=== PATIENT | male | born 1960 | race African-American/Black ===

== ENCOUNTER 2018-08-04 17:18 | Emergency (ER) | payer MEDICARE ==
[2018-08-04 18:00] LABS: #Basophils 0.1 thou/uL (0.0-0.2); #Eosinphils 0.5 thou/uL (0.0-0.7); #Lymphocytes 3.2 thou/uL (1.20-3.40); #Monocytes 0.8 thou/uL (0.11-0.59); #Neutrophils 5.8 thou/uL (1.40-6.50); %Basophils 0.9 % (0.0-1.0); %Eosinophils 4.6 % (0.0-10.0); %Monocytes 7.9 % (0.0-10.0); %Neutrophils 55.6 % (42.0-75.0); Hemoglobin 11.2 g/dL (14.0-18.0); Mean Corpuscular HGB CONC 34.2 g/dL (32.0-36.0); Mean Corpuscular Hemoglobin 32.9 pg (27.0-31.0); Mean Corpuscular Volume 96.1 fL (78.0-98.0); Mean Platelet Volume 7.1 fL (7.4-10.4); Platelet Count 339 thou/uL (130-400); RBC Distribution Width 11.4 % (11.5-14.5); Red Blood Cell (RBC) Count 3.42 mill/uL (4.70-6.10); White Blood Cell (WBC) Count 10.4 thou/uL (4.8-10.8)
[2018-08-04 18:33] LABS: ALT (SGPT) 20 U/L (8-55); AST (SGOT) 18 U/L (5-34); Albumin 4.5 g/dL (3.5-5.0); Alkaline Phosphatase 87 U/L (40-150); Anion Gap 16 mmol/L (10-20); BUN (Urea Nitrogen) 32 mg/dL (8.4-25.7); Bilirubin, Total 0.8 mg/dL (0.2-1.2); Calc. Creatinine Clearance 0 mL/min (70-130); Calcium 10.3 mg/dL (7.8-10.44); Chloride 105 mmol/L (98-107); Estimated GFR-MDRD 41; Globulin 3.2 g/dL (2.4-3.5); Glucose 232 mg/dL (70-105); Potassium 4.4 mmol/L (3.5-5.1); Protein, Total 7.7 g/dL (6.0-8.3); Sodium 140 mmol/L (136-145)
[2018-08-04 18:40] LABS: Carbon Dioxide 23 mmol/L (22-29)
--- NOTE | 2018-08-04 19:07 | RAD ---
RIGHT BIG TOE THREE VIEWS: History: Right toe pain. Ulceration. FINDINGS: Mild joint space narrowing and osteophytosis. Soft tissue swelling about the big toe. Prominent arter ial calcification. No acute fracture, dislocation, or soft tissue gas are apparent. IMPRESSION: 1. Mild degenerative changes. Soft tissue swelling. 2. No acute osseous abnormalities are demonstrated. 3. Atherosclerosis. POS: NAYELI
== END 2018-08-04 19:00 | disposition home or self-care (01) ==
LOC: ERS 17:18
DX: B35.1 Tinea unguium (principal); E11.621 Type 2 diabetes mellitus with foot ulcer; L97.529 Non-pressure chronic ulcer of other part of left foot with unspecified severity; L97.519 Non-pressure chronic ulcer of other part of right foot with unspecified severity; E11.40 Type 2 diabetes mellitus with diabetic neuropathy, unspecified; E78.5 Hyperlipidemia, unspecified; I10 Essential (primary) hypertension; F32.9 Major depressive disorder, single episode, unspecified; Z79.84 Long term (current) use of oral hypoglycemic drugs; Z79.899 Other long term (current) drug therapy
CPT/HCPCS: 36415; 80053; 85025

== ENCOUNTER 2018-10-07 11:24 | Inpatient (IN) | payer MEDICARE ==
[2018-10-07] MEDS ORDERED: Morphine 4 MG/ML VIAL ONE (12:35)
[2018-10-07] MEDS ORDERED: Ondansetron PF 4 MG/2 ML Vial ONE (12:36)
[2018-10-07] MEDS ORDERED: HYDROcodone/Acetaminophen 5/325 mg Tablet PO PRN ×2 (14:34)
[2018-10-07] MEDS ORDERED: Acetaminophen 325 MG TAB PO PRN (14:34)
[2018-10-07] MEDS ORDERED: Morphine 2 MG/ML SYRINGE SLOW IVP PRN (14:38)
[2018-10-07] MEDS ORDERED: Sodium Chloride 0.45% 1,000 ML IV SCH (14:45)
[2018-10-07] MEDS ORDERED: Sodium Chloride 0.9% 500 ML IV SCH (14:45)
[2018-10-07] MEDS ORDERED: HumaLOG 300 UNITS/3 ML VIAL SC PRN (14:51)
[2018-10-07] MEDS ORDERED: Dextrose 50% Abboject 50 ML SYRINGE SLOW IVP PRN (14:51)
[2018-10-07] MEDS ORDERED: Dextrose 5% in Water 1,000 ML IV PRN (14:51)
--- NOTE | 2018-10-07 14:53 | HP ---
HISTORY OF PRESENT ILLNESS: Wilmer Owusu is a 58-year-old black male from [place]. The patient has had an ongoing problem of his right great toe resulting in severe infection, purulent drainage, and pain. He is on metformin for diabetes and lisinopril for hypertension. 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 X-rays reveal osteomyelitis. He denies any injury. He has had an ongoing nail bed infection. He is seen in the emergency room and laboratories essentially normal. He did have a white count of 9, hemoglobin of 10.8, BUN 47, creatinine 1.82, glucose 239. ALLERGIES: NONE. SOCIAL HISTORY: Tobacco, none. Alcohol, none. MEDICATIONS: None recorded. He reports metformin and lisinopril. PAST SURGICAL HISTORY: Noncontributory. PAST MEDICAL HISTORY: Diabetes, noninsulin-dependent, oral hypoglycemics; hypertension. He is followed by Clinic in [place]. PHYSICAL EXAMINATION: HEAD, EARS, EYES, NOSE, AND THROAT: Unremarkable. LUNGS: Clear to auscultation. CARDIAC: Regular rate and rhythm without murmur or gallop. ABDOMEN: Soft, nontender. EXTREMITIES: Palpable femoral, popliteal, pedal pulses. Right great toe purulent drainage through an open wound at the tip when probed communicates to the phalanx. There is swelling, edema, and pain. Other toes are normal. ASSESSMENT AND PLAN: 1. Right great toe diabetic infection with osteomyelitis. Plan is amputation of the distal toe with probable primary closure. I expect hospitalization 1 to 2 days, IV antibiotics, and discharged home on oral antibiotics with a postoperative shoe. Follow up in my office in 1 to 2 weeks for suture removal. 2. Diabetes mellitus. 3. Hypertension. 4. Anemia. Encourage screening colonoscopy outpatient future. Job ID: [id number]
[2018-10-07 15:15] LABS: Hemoglobin A1c 7.6 % (4.0-6.0)
[2018-10-07] MEDS ORDERED: Piperacillin/Tazobactam 3.375 GM VIAL ONE (17:26)
[2018-10-07] MEDS ORDERED: Ropivacaine 0.5% HCl/PF (150 MG/30 ML VIAL) ONE (17:46)
[2018-10-07] MEDS ORDERED: Piperacillin/Tazobactam 3.375 GM in Sodium Chloride 0.9% 100 ML IVPB SCH (18:00)
--- NOTE | 2018-10-07 18:06 | HP ---
CHIEF COMPLAINT: Right toe pain. HISTORY OF PRESENT ILLNESS: This patient is a 58-year-old male, who presented via the emergency department. The patient reports he has been having some pain and inflammation in his right great toe for about 3 months. He has been attempting to follow up with his PCP, but says he has limitations due to transportation issues. The patient has been on a course of Bactrim for about 8 days now, had a couple of more doses left on it. The patient continues to do a lot of walking and fishing on [place]. He has had no associated fevers or chills. He does report that he has pain radiating up into the middle of the foot area. He says he had stepped on a log or stick by the [place] that had scratched the upper part of his foot and he still has a couple of minor scars there from that interaction. PAST MEDICAL HISTORY: Notable for diabetes mellitus, hypertension. PAST SURGICAL HISTORY: Surgery on the left fifth finger over 20 years ago. FAMILY HISTORY: Mother has Alzheimer's. Father with complications and diabetes. SOCIAL HISTORY: The patient is a nonsmoker, only occasionally consumes alcohol. He is , but technically still . He is full code, and his daughters would be his surrogate decision maker. The patient reports that he is retired. ALLERGIES: NONE. MEDICATIONS: 1. Metformin 1000 mg b.i.d. 2. Gabapentin 600 mg b.i.d. 3. Sertraline 100 mg daily. 4. Pravastatin 10 mg at bedtime. 5. Ultram 50 mg q.6 hours p.r.n. PHYSICAL EXAMINATION: VITAL SIGNS: BP 135/84, pulse 63, respirations 16, O2 saturation 100% on room air. GENERAL APPEARANCE: Age-appropriate male, in no distress. He is awake, alert, oriented, pleasant, and cooperative. HEENT: PERRL. No OP lesions. NECK: Supple and symmetric. HEART: Regular rate and rhythm without murmurs, gallops, or rubs. LUNGS: Clear to auscultation bilaterally. ABDOMEN: Soft, nontender, and nondistended. Positive bowel sounds. No masses. No organomegaly. EXTREMITIES: Right foot reveals a foul smelling open sore at the distal aspect of the right great toe. The distal portion of the toe is generally edematous and discolored. The other toes have some mild callus. There are weakly palpable pulses in both PT and DP. SKIN: Warm. PSYCHIATRIC: The patient has normal affect and behavior. NEURO: The patient has normal sensation and appears to be grossly intact with no focal deficits. LABORATORY DATA: White count is 9.8, hemoglobin is 10.8, platelets are 542. Sodium 134, potassium 5.5, chloride 102, anion gap 16, BUN 47, creatinine 1.82, glucose 187. IMAGING STUDIES: Toe x-ray compared to previous study in July says there is an interval development of a comminuted distal tuft fracture of the right great toe. IMPRESSION AND PLAN: 1. Abscess of the right great toe in a diabetic with ulceration. I was seeing the patient in conjunction with Dr. Bowie. He probed the wound and was able to probe down to the bone. We discussed the situation with the patient, and ultimately, the decision was made to do a distal toe amputation. I will keep the patient on vancomycin and Zosyn, which he was started on in the emergency department. Keep him n.p.o. and anticipate that surgery to happen this afternoon. We will likely be able to follow up on cultures and I will be able to discharge him within a couple of days on oral antibiotics and wound care. We both discussed the need to stay in a protective boot postoperatively. 2. Diabetes mellitus. We will check a hemoglobin A1c. Continue with his usual home medications, diabetic diet, and Accu-Cheks with sliding scale insulin. 3. Chronic kidney disease. The patient appears to have chronic kidney disease stage 3. His creatinine is pretty close to where he was in July in fact slightly better. His GFR remains in the 40s, where it was in July. 4. Borderline hyperkalemia. We will give some fluid resuscitation. 5. Hyperlipidemia. Continue with his pravastatin. Job ID: [id number]
[2018-10-07] MEDS ORDERED: Midazolam HCl 2 mg/2 ml Vial ONE ×2 (18:15)
[2018-10-07] MEDS ORDERED: Bacitracin Zinc Ointment 30 gm TUBE ONE (18:21)
[2018-10-07] MEDS ORDERED: Sodium Chloride 0.9% 100 ML ONE (18:37)
[2018-10-07] MEDS ORDERED: traMADol HCl 50 MG TAB PO PRN (18:37)
[2018-10-07] MEDS ORDERED: Promethazine HCl 25 MG/ML VIAL SLOW IVP PRN (18:44)
[2018-10-07] MEDS ORDERED: Promethazine HCl 25 MG/ML VIAL IM PRN (18:44)
[2018-10-07] MEDS ORDERED: Ondansetron HCl/PF 4 MG/2 ML Vial IVP PRN (18:44)
[2018-10-07] MEDS: metFORMIN 500 MG TAB PO SCH (18:55)
[2018-10-07] MEDS ORDERED: Pravastatin Sodium 20 MG TAB PO SCH (21:00)
[2018-10-07] MEDS: Famotidine 20 MG TAB PO SCH (21:49)
[2018-10-07] MEDS: Gabapentin 300 MG CAP PO SCH (21:50)
[2018-10-07] MEDS ORDERED: diphenhydrAMINE 25 MG CAP PO PRN (22:04)
[2018-10-08] MEDS: Ibuprofen 600 MG TAB PO PRN ×2 (01:55→08:18)
[2018-10-08] MEDS: Piperacillin/Tazobactam 3.375 GM in Sodium Chloride 0.9% 100 ML IVPB SCH ×3 (01:56→13:41)
[2018-10-08] MEDS: Vancomycin HCl 1 GM in Premix Bag 1 BAG IVPB SCH ×2 (03:15→14:41)
[2018-10-08 03:44] VITALS: BMI 28.9
[2018-10-08] MEDS: traMADol HCl 50 MG TAB PO PRN ×2 (03:58→10:50)
[2018-10-08] MEDS: Acetaminophen 500 MG TAB PO PRN ×2 (03:59→10:50)
[2018-10-08 05:34] LABS: #Basophils 0.1 thou/uL (0.0-0.2); #Eosinphils 0.4 thou/uL (0.0-0.7); #Lymphocytes 2.7 thou/uL (1.20-3.40); #Monocytes 0.6 thou/uL (0.11-0.59); #Neutrophils 3.1 thou/uL (1.40-6.50); %Lymphocytes 38.7 % (21.0-51.0); %Monocytes 9.4 % (0.0-10.0); %Neutrophils 45.1 % (42.0-75.0); Hemoglobin 10.9 g/dL (14.0-18.0); Mean Corpuscular HGB CONC 33.6 g/dL (32.0-36.0); Mean Corpuscular Hemoglobin 32.3 pg (27.0-31.0); Mean Corpuscular Volume 96.3 fL (78.0-98.0); Mean Platelet Volume 6.8 fL (7.4-10.4); Platelet Count 514 thou/uL (130-400); RBC Distribution Width 11.2 % (11.5-14.5); Red Blood Cell (RBC) Count 3.37 mill/uL (4.70-6.10); White Blood Cell (WBC) Count 6.9 thou/uL (4.8-10.8)
[2018-10-08] MEDS: Morphine 2 MG/ML SYRINGE SLOW IVP PRN ×2 (05:40→09:00)
[2018-10-08 06:00] LABS: Anion Gap 15 mmol/L (10-20); BUN (Urea Nitrogen) 32 mg/dL (8.4-25.7); Calc. Creatinine Clearance 62 mL/min (70-130); Calcium 9.5 mg/dL (7.8-10.44); Carbon Dioxide 20 mmol/L (22-29); Chloride 105 mmol/L (98-107); Estimated GFR-MDRD 51; Glucose 274 mg/dL (70-105); Potassium 5.2 mmol/L (3.5-5.1); Sodium 135 mmol/L (136-145)
[2018-10-08] MEDS: Famotidine 20 MG TAB PO SCH (08:18)
[2018-10-08] MEDS: Gabapentin 300 MG CAP PO SCH (08:18)
[2018-10-08] MEDS: metFORMIN 500 MG TAB PO SCH (08:18)
[2018-10-08] MEDS ORDERED: Enoxaparin Sodium 40 MG/0.4 ML SYRINGE SC SCH (09:00)
--- NOTE | 2018-10-08 11:49 | PRG ---
DATE OF SERVICE: 10/08/2018 SUBJECTIVE: Wilmer Owusu is doing well today. His dressings are intact. He has his postoperative shoe. I recommended that he remove his dressing tomorrow, wash the wound with soap and water, apply antibiotic ointment and Band-Aid. He can take Tylenol, ibuprofen, and Ultram p.r.n. pain. I have written these prescriptions. He can stop the IV antibiotics and start oral antibiotics, Augmentin and Bactrim for 10 days. Follow up in my office in 2 weeks, keep the wound clean. Job ID: [id number]
[2018-10-08 15:48] VITALS: BP 126/75; TEMP 98.1
--- NOTE | 2018-10-08 16:57 | DIS ---
DATE OF ADMISSION: 10/07/2018 DATE OF DISCHARGE: 10/08/2018 FINAL DIAGNOSES: 1. Right great toe diabetic infection with osteomyelitis, status post amputation of the distal toe with primary closure. 2. Diabetes mellitus. 3. Hypertension. 4. Anemia. 5. Renal insufficiency, suspected acute on chronic insufficiency. 6. Hyperkalemia, mild. LITERARY AGENT: Dr. Ricardo Bowie, General Surgery. PROCEDURE: 10/07/2018, amputation of the distal toe . HOSPITAL COURSE: The patient was a 58-year-old male, who presented via the emergency department with complaints of right toe pain, which was going for approximately 3 months. He tried to follow up with his PCP, but he has some limitations due to transportation issues. The patient was on course of Bactrim for about eight days prior to this hospitalization. He did not have any fevers or chills. He had some radiation of this pain into the middle part of his foot on the right side. He was evaluated in the emergency room and was found to have white count of 9.8, hemoglobin 10.8, platelet count 542, potassium 5.2, chloride 102, anion gap 16, BUN 47, creatinine 1.82. X-ray showed interval development of comminuted distal tuft fracture of the right great toe. The patient was admitted to the hospital, placed on Zosyn and vancomycin. General Surgery was consulted and Dr. Bowie took the patient to the operating room and did great toe amputation. The patient is doing quite well postop, but he has shooting pains in his right foot. His preliminary bacterial culture from the toe specimen showed moderate wbc's, rbc's present, few epithelial cells, many gram-positive cocci in pairs and clusters, many gram-negative rods, moderate gram-positive rods. The culture is still pending. His creatinine is down to 1.67. Hemoglobin A1c came back at 7.6. The patient's right foot is placed in ortho boot. Dr. Bowie saw the patient today and he is okay to discharge him home. Supposed to wash with soap and water daily, put some ointment on it and Band-Aid, and follow up with Dr. Bowie in 2 weeks to remove the stitches. The patient is going to stay on 2000 calories ADA diet. Activities as tolerated. HOME MEDICATIONS: 1. Hydrocodone bitartrate/acetaminophen 5/325 mg one tablet q.4 hours p.r.n. as needed. 2. Gabapentin 600 mg twice a day. 3. Lisinopril/hydrochlorothiazide 20/12.5 mg 1 tablet every morning. 4. Diclofenac 75 mg q.a.m. 5. Pravastatin 20 mg at bedtime. 6. Metformin 1000 mg twice a day. 7. Sertraline (Zoloft) 1 tablet once a day. 8. Augmentin 500 mg twice a day for 10 days. 9. Bactrim DS one tablet twice a day. 10. Tramadol 50 to 100 p.r.n. as needed. FOLLOWUP: He is encouraged to follow up with his primary care physician if it is possible in 1 week and the patient was seen and examined before he is discharged and discharge time is less than 30 minutes. Job ID: [id number]
--- NOTE | 2018-10-10 10:16 | OP ---
DATE OF PROCEDURE: 10/07/2018 PREOPERATIVE DIAGNOSIS: Osteomyelitis, right great toe, diabetic. PROCEDURE PERFORMED: Amputation of right great toe through the proximal phalanx with primary closure. ANESTHESIA: MAC, ankle block. BLOOD LOSS: Negligible. DESCRIPTION OF PROCEDURE: The patient was taken to the operating room, where under ankle block and intravenous sedation, his right lower extremity was prepared with ChloraPrep and draped in routine fashion. Incision was made fishmouth type for amputation of the right great toe through the proximal phalanx. Incision was carried down through skin and subcutaneous tissue. Phalanx resected proximally with a bone cutter and more proximally with a rongeur. Wound irrigated. Connective tissue debrided sharply. Subcutaneous tissue was approximated with 3-0 Monocryl, skin with 4-0 Prolene. Antibiotic ointment and sterile dressings were applied. The patient tolerated the procedure well. Job ID: [id number]
== END 2018-10-08 15:40 | disposition home or self-care (01) | DRG 617 ==
LOC: ERS 11:24 → SURG B 13:20
PROVIDERS: ADMIT Internal Medicine; ATTEND Internal Medicine
PROC: 0Y6P0Z1 Detachment at Right 1st Toe, High, Open Approach (ICD-10-PCS; principal; 2018-10-07)
DX: E11.69 Type 2 diabetes mellitus with other specified complication (principal); M86.171 Other acute osteomyelitis, right ankle and foot; L02.611 Cutaneous abscess of right foot; L97.519 Non-pressure chronic ulcer of other part of right foot with unspecified severity; E11.621 Type 2 diabetes mellitus with foot ulcer; E11.40 Type 2 diabetes mellitus with diabetic neuropathy, unspecified; E11.628 Type 2 diabetes mellitus with other skin complications; E11.22 Type 2 diabetes mellitus with diabetic chronic kidney disease; I12.9 Hypertensive chronic kidney disease with stage 1 through stage 4 chronic kidney disease, or unspecified chronic kidney disease; E78.00 Pure hypercholesterolemia, unspecified; F32.9 Major depressive disorder, single episode, unspecified; L03.031 Cellulitis of right toe; D63.1 Anemia in chronic kidney disease; N18.9 Chronic kidney disease, unspecified; E87.5 Hyperkalemia; Z79.84 Long term (current) use of oral hypoglycemic drugs; Z79.899 Other long term (current) drug therapy
CPT/HCPCS: 36415; 36416; 80048; 83036; 85025; 87070; 87077; 87186; 87205; 88305; 88311; 90471; 90686; 90732; 93005; G0008; G0009; J1650; J2250; J2270; J2405; J2543; J2795; J3370; J7050; Q0163

== ENCOUNTER 2018-11-28 09:47 | Outpatient (CLI) | payer MEDICARE ==
--- NOTE | 2018-11-28 13:28 | RAD ---
RIGHT FOOT 2 VIEWS: Date: 11/28/18 INDICATION: Osteomyelitis. COMPARISON: Prior radiographs of right foot dated 10/07/18. FINDINGS: There has been interval partial ray amputation of the great toe through the proximal phalangeal shaft . There is soft tissue swelling involving the medial aspect of the right foot. No apparent soft tissu e gas is evident. Monckeberg's calcifications are seen within the soft tissues. No definite destructi ve osteolysis is seen to suggest radiographic evidence of osteomyelitis. Enthesopathic change is seen off the calcaneus. IMPRESSION: Interval partial ray amputation of the great toe through the proximal phalanx. Residual soft tissue s welling of the forefoot and midfoot. POS: TPC
== END 2018-11-28 09:48 | disposition home or self-care (01) ==
LOC: RAD 09:47
PROVIDERS: ATTEND Specialist
DX: M86.8X7 Other osteomyelitis, ankle and foot (principal); Z89.411 Acquired absence of right great toe

== ENCOUNTER 2019-01-17 15:08 | Emergency (ER) | payer MEDICARE, MEDICAID | END 2019-01-17 17:54 | disposition home or self-care (01) | LOC: ERS 15:08 | DX: S60.941A Unspecified superficial injury of left index finger, initial encounter (principal); Z79.84 Long term (current) use of oral hypoglycemic drugs; Z79.899 Other long term (current) drug therapy; W45.8XXA Other foreign body or object entering through skin, initial encounter | CPT/HCPCS: 99283 ==

== ENCOUNTER 2019-01-31 15:16 | Outpatient (CLI) | payer MEDICARE, MEDICAID ==
--- NOTE | 2019-01-31 15:55 | ULT ---
Obstetrical ultrasound: 01/31/2019 COMPARISON: None HISTORY: 18-year-old female undergoing routine imaging TECHNIQUE: Multiplanar grayscale sonographic imaging of the gravid uterus obtained. FINDINGS: The cervix measures approximately 3.5 cm in length. There is a single intrauterine gestation demonstrating a transverse lie with head to maternal left. A FI is approximately 11.3 cm. Placenta located in the posterior fundus, with no evidence for previa or abruption. heart rate is 158 bpm. The four-chamber heart view, stomach, urinary bladder, umbilical cord and cord insertion, intracrania l contents, region of kidneys, and spine appear grossly unremarkable. nose and lips are grossly unremarkable as well. A three-vessel cord is noted. biometry: BPD 3.8 cm 17 weeks 5 days HC 13.8 cm 17 weeks 2 days Abdominal circumference 11.2 cm 17 weeks 0 days Femur length 2.3 cm 16 weeks 6 days Average age based on ultrasound is 17 weeks 2 days. Estimated weight is 175 g +/- 26 g. Estimated date of delivery is 07/09/2019. IMPRESSION: Intrauterine gestation as detailed above.
--- NOTE | 2019-01-31 16:42 | ULT ---
Focused ultrasound of the left hand: 01/31/2019 HISTORY: Evaluate ganglion cyst at the level of the wrist and evaluate for foreign body at the base o f the index finger dorsally FINDINGS: There is soft tissue swelling involving the dorsal aspect of the index finger in the area o f palpable concern. There is a very small echogenic focus within the subcutaneous soft tissues, approximately 2-3 mm deep to the skin, which measures approximately 1 mm. There is very small volume surrounding fluid echogenicity. This suggests a punctate foreign body . Imaging over the area of palpable concern at the wrist demonstrates an oval heterogeneously hypoechoi c lesion measuring 1.3 x 2.3 x 0.5 cm. It demonstrates no internal blood flow and per the performing rn military, is a mobile finding. Consistent with the provided history of ganglion cyst. IMPRESSION: 1. Findings suggesting a punctate 1 mm foreign body within the subcutaneous soft tissues along the do rsal aspect of the base of the index finger with minimal surrounding fluid. 2. Oval hypoechoic lesion in the region of the left wrist palpable concern, most consistent with gang lion cyst. POS: NAYELI
== END 2019-01-31 15:17 | disposition home or self-care (01) ==
LOC: BICULT 15:16
PROVIDERS: ATTEND Orthopaedic Surgery Hand Surgery
DX: M79.5 Residual foreign body in soft tissue (principal)
CPT/HCPCS: 76999

== ENCOUNTER 2019-02-01 13:55 | Outpatient (CLI) | payer MEDICARE, MEDICAID ==
[2019-02-01 15:01] LABS: #Basophils 0.1 thou/uL (0.0-0.2); #Eosinphils 0.3 thou/uL (0.0-0.7); #Lymphocytes 3.4 thou/uL (1.20-3.40); #Monocytes 0.6 thou/uL (0.11-0.59); #Neutrophils 4.4 thou/uL (1.40-6.50); %Basophils 1.1 % (0.0-1.0); %Eosinophils 3.6 % (0.0-10.0); %Lymphocytes 38.2 % (21.0-51.0); %Monocytes 7.2 % (0.0-10.0); %Neutrophils 49.8 % (42.0-75.0); Hemoglobin 11.3 g/dL (14.0-18.0); Mean Corpuscular HGB CONC 35.1 g/dL (32.0-36.0); Mean Corpuscular Hemoglobin 34.5 pg (27.0-31.0); Mean Corpuscular Volume 98.4 fL (78.0-98.0); Mean Platelet Volume 7.9 fL (7.4-10.4); Platelet Count 380 thou/uL (130-400); Red Blood Cell (RBC) Count 3.27 mill/uL (4.70-6.10); White Blood Cell (WBC) Count 8.8 thou/uL (4.8-10.8)
[2019-02-01 15:18] LABS: Anion Gap 13 mmol/L (10-20); BUN (Urea Nitrogen) 21 mg/dL (8.4-25.7); Calc. Creatinine Clearance 0 mL/min (70-130); Calcium 9.7 mg/dL (7.8-10.44); Carbon Dioxide 22 mmol/L (22-29); Chloride 105 mmol/L (98-107); Estimated GFR-MDRD 72; Glucose 229 mg/dL (70-105); Potassium 4.4 mmol/L (3.5-5.1); Sodium 136 mmol/L (136-145)
== END 2019-02-01 13:56 | disposition home or self-care (01) ==
LOC: LABBT 13:55
PROVIDERS: ATTEND Orthopaedic Surgery Hand Surgery
DX: Z01.818 Encounter for other preprocedural examination (principal); S60.451A Superficial foreign body of left index finger, initial encounter
CPT/HCPCS: 80048; 85025; 93005; 93010

== ENCOUNTER 2019-02-02 12:24 | Day surgery (SDC) | payer MEDICARE, MEDICAID ==
[2019-02-01 14:01] VITALS: BMI 28.7
[2019-02-02] MEDS ORDERED: Bacitracin Zinc Ointment 30 gm TUBE ONE (12:42)
[2019-02-02] MEDS ORDERED: Bupivacaine PF 0.5% 30 ML VIAL ONE ×2 (12:42→15:17)
[2019-02-02] MEDS ORDERED: Sodium Chloride 0.9% 0 ML ONE (12:42)
[2019-02-02] MEDS ORDERED: ceFAZolin Sodium (SDC) 2 GM/100 ML BAG ONE (13:40)
[2019-02-02] MEDS ORDERED: Lidocaine 1% PF 5 ML VIAL ONE (15:38)
[2019-02-02] MEDS ORDERED: Ondansetron PF 4 MG/2 ML Vial ONE (15:38)
[2019-02-02] MEDS ORDERED: ePHEDrine 50 MG/ML VIAL ONE (15:38)
[2019-02-02] MEDS ORDERED: PHENYLEPHRINE-NS 100 MCG/ML 10 ML SYRINGE ONE (15:38)
[2019-02-02] MEDS ORDERED: Dexamethasone 20 MG/5 ML VIAL ONE (15:38)
[2019-02-02] MEDS ORDERED: PROPOFOL 200 MG/20 ML VIAL ONE (15:38)
[2019-02-02] MEDS ORDERED: Lidocaine 2% Jelly 5 ML TUBE ONE (15:48)
[2019-02-02] MEDS ORDERED: Midazolam HCl 2 mg/2 ml Vial ONE ×2 (15:48→17:20)
[2019-02-02] MEDS ORDERED: Fentanyl 100 MCG/2 ML VIAL ONE ×2 (15:48→17:20)
[2019-02-02] MEDS ORDERED: Betamet Acet/Betamet Na Ph 30 MG/5 ML VIAL ONE (18:47)
[2019-02-02] MEDS ORDERED: Ketorolac Tromethamine 30 MG/ML VIAL ONE (19:19)
[2019-02-02] MEDS ORDERED: HYDROcodone/Acetaminophen 5/325 mg Tablet ONE (20:41)
--- NOTE | 2019-02-03 03:04 | OP ---
DATE OF PROCEDURE: 02/02/2019 PREOPERATIVE DIAGNOSES: Right index finger foreign body with foreign body granuloma and tenosynovitis extensor tendon. POSTOPERATIVE DIAGNOSES: 1. Right index finger foreign body with foreign body granuloma and tenosynovitis extensor tendon with approximately 2 to 3 mm firm hard mass in the center of a granuloma, dorsal, radial, mid proximal phalanx index finger. 2. Tenosynovitis, extensor carpi radialis longus, extensor indicis proprius, and extensor digitorum communis index finger. 3. 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 PROCEDURES PERFORMED: 1. Excision, foreign body, and foreign body granuloma, right index finger proximal phalanx dorsum. 2. Excision, carpal boss/ostectomy, third carpometacarpal joint. 3. Tenosynovectomy, extensor carpi radialis longus, extensor indicis proprius, and extensor digitorum communis index finger. 4. Exploration of anomalous muscle, left wrist. INJECTABLE: Yes, 30 mL of 0.5% Marcaine, 10 given to each of the 2 incisions preop and 5 given after closure of each incision. SPECIMEN SENT TO LAB: Yes, foreign body granuloma and the carpometacarpal osteophyte/carpometacarpal boss. DESCRIPTION OF PROCEDURE: After successful general endotracheal anesthesia, the limb was prepped and draped. Time-out was done appropriately. The limb was exsanguinated, tourniquet inflated to 250 mmHg pressure. We outlined incision over the soft subcutaneous mass to the dorsum of the carpometacarpal joint and wrist, outlined a zigzag incision over the anterior wound of a previous fishing violation with a bar and where an ultrasound has shown a 2 to 3 mm mass surrounded by granuloma. We approached the index finger proximal phalanx first, made the incision, carried down through skin and subcutaneous tissue and immediately deep to the healed puncture wound. There was a 2 to 3 mm mass obliquely oriented slightly dorsal radial and was surrounded by approximately a 5 to 6 mm area of granuloma. We excised both and sent them as specimen. We irrigated the area. Packed it with moist normal saline. We approached the dorsal wrist mass and made a zigzag incision, immediately I could see what was some tenosynovitis of the extensor digitorum to the index finger. There was anomalous muscle or distal origin to the extensor indicis proprius. We lifted this up and underneath was a very large 8 mm long x 4.5 mm high carpometacarpal boss of the long finger carpometacarpal joint. We excised this using the arthrotomy, saving the joint capsule and then making an ostectomy of the prominent region centered over the joint, but mostly over the metacarpal base with an osteotome. This was sent as specimen as was the tenosynovitis and as was the foreign body granuloma. We now deflated the tourniquet and final hemostasis at both sites. We closed the proximal phalanx wound with interrupted 4-0 nylon simple pattern and we closed the carpometacarpal wound with running 4-0 Monocryl and then a 3-0 nylon for epidermal closure of mattress interrupted. Celestone was given to each site, 2.5 mL before closure. The patient left the operating room with a soft dressing. No evidence of anesthetic or operative complication. Job ID: [id number]
--- NOTE | 2019-02-07 05:54 | PQF ---
[facility] POST DISCHARGE CLINICAL DOCUMENTATION IMPROVEMENT CLARIFICATION FORM l Todays Date: 02/07/19 l Patients Name JD FELICIANO l l Admit Date 02/02/19 l Disch Date 02/02/19 Automotive Worker Name Whitney Velásquez Email: [email or web address] Cell: [phone] To be completed by Automotive Worker: Present Clinical Indicators - Signs / Symptoms Results and Location in Medical Record [ ] Documentation of: [ ] [ ] Documentation of: [ ] [ ] Documentation of: [ ] [ ] Documentation of: [ ] [ ] Risks [ ] [ ] [ ] Treatment [ ] Excision of residual granuloma Query for granuloma size [ ] [ ] To be completed by Physician: JULIAN MCMULLEN The documentation in this patients record requires clarification to ensure coding compliance and accuracy. Check the appropriate box and include in your discharge summary. [ ] [ ] [ ] [ ] Please check this box if this does not apply to this patient [ ] Unable to determine [ ] Other diagnosis: Review the following information and exercise your independent professional judgment in responding to the clarification. Based upon the clinical findings, risk factors, and treatment, please clarify if you are treating one of the above probable or suspected diagnoses. Physician Signature: Date Time RANJANAD
== END 2019-02-02 21:00 | disposition home or self-care (01) ==
LOC: SDC 12:24
PROVIDERS: ATTEND Orthopaedic Surgery Hand Surgery
PROC: 0JBJ0ZZ Excision of Right Hand Subcutaneous Tissue and Fascia, Open Approach (ICD-10-PCS; principal; 2019-02-02)
PROC: 0LB50ZZ Excision of Right Lower Arm and Wrist Tendon, Open Approach (ICD-10-PCS; 2019-02-02)
PROC: 0PBM0ZZ Excision of Right Carpal, Open Approach (ICD-10-PCS; 2019-02-02)
DX: M65.841 Other synovitis and tenosynovitis, right hand (principal); L92.3 Foreign body granuloma of the skin and subcutaneous tissue; M25.731 Osteophyte, right wrist; I10 Essential (primary) hypertension; E11.9 Type 2 diabetes mellitus without complications; M19.90 Unspecified osteoarthritis, unspecified site; F10.20 Alcohol dependence, uncomplicated; F32.9 Major depressive disorder, single episode, unspecified; Z79.84 Long term (current) use of oral hypoglycemic drugs; Z79.899 Other long term (current) drug therapy
CPT/HCPCS: 88305; 88307; 88311; J0690; J0702; J1100; J1885; J2001; J2250; J2405; J2704; J3010; J3490; S0020